=== PATIENT | male | born 1950 | race Caucasian/White ===

== ENCOUNTER → 2017-04-08 11:00 | Outpatient (CLI) | payer MEDICARE, BC ==
[2013-11-10 09:30] VITALS: BMI 37.2
[~2017-04-08 11:00] MED LIST: ALDACTONE25 MG PO; AMBIEN5 MG PO; ASPIRIN EC81 M1 PO; ATIVAN0.5 MG PO; COMBIVENT RESPIM4 GM INH; CRESTOR10 MG PO; IBUPROFEN200 MG PO; IPRATROPIUM BR42 MCG NASAL; LOTREL 5/20 MG1 CAP PO; OMNICEF300 MG PO; TOPROL XL25 MG PO
[2017-06-20 11:28] VITALS: BMI 34.6
== END | disposition home or self-care (01) ==
LOC: D.CT 11:00
DX: I71.4 Abdominal aortic aneurysm, without rupture (principal)

== ENCOUNTER 2017-05-10 14:32 | Inpatient (IN) | payer MEDICARE ==
[~2017-05-10] VITALS: Ht 160 cm; Wt 88.6 kg
--- NOTE | ~2017-05-10 | HEMODYNAMI ---
PATIENT:YONATAN BROWN MEDICAL RECORD: [id number] : 46 [facility] ADMISSION DATE: 05/10/17 Generatedon:05/12/20179:48 Patient name: YONATAN BROWN Patient #: [id number] SSN: : 1950 Date of study: 05/12/2017 Page: Of Hemodynamic Procedure Report Patient Data Patient Demographics Procedure consent was obtained First Name: YONATAN Gender: Male Last Name: KEVIN : 1950 Middle Initial: KAREN Age: 67 year(s) Patient #: [id number] Race: Unknown Additional ID: [id number] Contact details Address: [address] [place] [address] State: [place] City: [place] Zip code: [address] Admission Admission Data Admission Date: 05/10/2017 Admission Time: 17:23 Room #: 2133 Procedure Procedure Types Cath Procedure Diagnostic Procedure LHC [facility] w/Coronaries Miscellaneous Procedures Moderate Sedation up to 30 minutes Procedure Description Procedure Date Procedure Date: 05/12/2017 Procedure Start Time: 9:23 Procedure End Time: 9:47 Procedure Staff Name Function Malick Lemon MD Performing Physician Kameron Patel RT Monitor Nery Solis RT Scrub Dontae Carney RN Nurse Procedure Data Cath Procedure Fluoroscopy Diagnostic fluoroscopy Total fluoroscopy Time: 4.3 time: 4.3 min min Diagnostic fluoroscopy Total fluoroscopy dose: 586 dose: 586 mGy mGy Contrast Material Contrast Material Type Amount (ml) Isovue 300 54 Entry Location Entry Primary Successful Side Size Upsize Upsize Entry Closure Succes sful Closure Location (Fr) 1 (Fr) 2 (Fr) Remarks Device Remarks Femoral Right 5 Fr Exoseal artery Estimated blood loss: 10 ml Diagnostic catheters Device Type Used For End Catheter Placement MULTIPACK JL 4.0 5Fr Procedure catheter DIAGNOSTIC JL 5 5Fr Procedure catheter ([id number]) MULTIPACK 3DRC 5Fr Procedure catheter MULTIPACK Pigtail 5 Fr Procedure catheter Procedure Complications No complications Procedure Medications Medication Administration Route Dosage Oxygen NC 2 l/min Lidocaine 2% added to field 20 Heparin Flush Bag added to field 2 bags (1000units/500ml NS) 0.9% NaCl I.V. 100 ml/hr Versed I.V. 1 mg Hemodynamics Rest Heart Rate: 98 (bpm) Pressure Samples Time Site Value (mmHg) Purpose Heart Use Rate(bpm) 9:31 AO 128/77(97) Snapshot 89 9:37 LV 144/9,35 EDP 90 9:37 LV 139/13,37 Snapshot 89 Snapshots Pre Cath Intra NCS Post Cath Vital Signs Time Heart Resp SPO2 etCO2 NIBP (mmHg) Rhythm Pain Sedation Rate (ipm) (%) (mmHg) Status Level (bpm) 9:14:09 95 30 98 0 135/76(105) Paced 0 (11) 10(A) , No pain 9:19:00 95 30 98 0 123/75(102) Paced 0 (11) 10(A) , No pain 9:23:44 96 34 95 0 134/77(103) Paced 0 (11) 10(A) , No pain 9:28:27 83 30 96 0 122/71(94) Paced 0 (11) 10(A) , No pain 9:33:14 88 28 95 0 129/76(98) Paced 0 (11) 10(A) , No pain 9:37:56 89 31 95 0 121/75(93) Paced 0 (11) 10(A) , No pain 9:42:39 89 26 95 0 115/77(97) Paced 0 (11) 10(A) , No pain 9:47:24 93 27 96 0 127/73(89) Paced 0 (11) 10(A) , No pain Medications Time Medication Route Dose Verified Delivered Reason Notes Effec tiveness by by 9:20:17 Oxygen NC 2 Malick Buffie used for l/min Ion herrera MD 9:20:25 Lidocaine 2% added 20ml Malick Malick for local to vial Ion Lemon MD anesthetic field 9:20:55 Heparin Flush added 2 Malick Malick used for Bag to bags Ion Lemon MD procedure (1000units/500ml field ZUNIGA NS) 9:21:04 0.9% NaCl I.V. 100 Malick Buffie Per ml/hr Ion Carney RN physician MD 9:23:54 Versed I.V. 1 mg Malick Diggs for Ion Carney RN sedation MD Procedure Log Time Note 8:45:58 Kameron Amanda RT(R) sent for patient. Start room use. 8:57:55 Diagnostic Cath status Elective 8:57:59 Time tracking: Call back 9:07:30 Patient received from Med II to CCL 1 Alert and oriented. Tansferred to table in Supine position. 9:07:36 Warm blankets applied, and meseret hugger turned on for patient comfort. 9:07:37 Correct patient and procedure confirmed by team. 9:07:39 Signed procedure consent form obtained from patient. 9:07:39 ECG and BP/O2 sat monitors applied to patient. 9:13:12 Vital chart was started 9:19:41 Baseline sample Acquired. 9:19:56 Rhythm: paced 9:19:57 Full Disclosure recording started 9:20:05 H&P Date Dictated: 05/11/2017 Within 30 days and on chart.. 9:20:06 Pre-procedure instructions explained to patient. 9:20:06 Pre-op teaching completed and patient verbalized understanding. 9:20:12 Family in patients room. 9:20:14 Patient NPO since Midnight. 9:20:15 Is the patient allergic to Iodine/contrast media? No. 9:20:17 Oxygen 2 l/min NC was administered by Dontae Carney RN; used for procedure; 9:20:17 Is patient on blood thinner?Yes 9:20:19 ACC The patient was administered the following blood thiners within the last 24 hours: ACCPlavix 9:20:22 Patient diabetic? No. 9:20:23 Previous problem with sedation/anesthesia? Yes difficulty waking up after sedation. 9:20:25 Lidocaine 2% 20ml vial added to field was administered by Malick Lemon MD; for local anesthetic; 9:20:25 Snore? Yes 9:20:55 Heparin Flush Bag (1000units/500ml NS) 2 bags added to field was administered by Malick Lemon MD; used for procedure; 9:21:04 0.9% NaCl 100 ml/hr I.V. was administered by Dontae Carney RN; Per physician; 9:21:25 Sleep apnea? No 9:21:26 Deviated septum? No 9:21:26 Opens mouth fully? Yes 9:21:27 Sticks out tongue? Yes 9:21:30 Airway obstruction? Yes COPD 9:21:34 Dentures? No ? 9:21:37 Pre procedure: right dorsailis pedis pulse 1+ Palpable, but thready & weak; easily obliterated 9:21:41 Patient pain scale 0/10 ?. 9:21:48 IV patent on arrival in right wrist with 0.9% NaCl at O. 9:22:14 Unable to gain radial due to IV in right wrist. 9:22:19 Lab results completed and on chart. 9:22:22 Right groin area was prepped with chlora-prep and draped in sterile fashion 9::23 Alarms reviewed by R. N. 9:22:24 Sharps counted by scrub and verified by R.N. 9::25 --------ALL STOP TIME OUT------ 9::25 Final Timeout: patient, procedure, and site verified with staff and physician. All members of the team are in agreement. 9:22:27 Right groin site verified by team. 9:22:31 Physical assessment completed. ASA score P 2 - A patient with mild systemic disease as per Malick Lemon MD. 9:22:34 Sedation plan: IV Moderate Sedation Medication:Versed, Fentanyl 9:22:58 Use device set Femoral Dx 9:23:02 Tegaderm 4 x 4 ([id number]) opened to sterile field. 9:23:03 ACIST Manifold (34714) opened to sterile field. 9:23:03 ACIST Hand Control (64725) opened to sterile field. 9:23:05 ACIST Syringe (95528) opened to sterile field. 9:23:06 Bag Decanter (2002S) opened to sterile field. 9:23:06 Medline Cath Pack ([id number]) opened to sterile field. 9:23:07 SHEATH 5FR [place] (YNP540) opened to sterile field. 9:23:07 DIAGNOSTIC WIRE .035 260cm J wire (210758) opened to sterile field. 9:23:09 DIAGNOSTIC Multipack 5Fr catheter set ([id number]) opened to sterile field. 9:23:12 MICROPUNCTURE 4FR Instamour (Y58133) opened to sterile field. 9:23:19 Procedure started. 9:23:22 Local anesthetic to right femoral artery with Lidocaine 2% by Malick Lemon MD.INITIAL ACCESS ONLY 9:23:54 Versed 1 mg I.V. was administered by Dontae Carney RN; for sedation; 9:26:37 Access obtained with 4Fr micropunture. 9:26:40 A 5 Fr sheath was inserted into the Right Femoral artery 9:27:03 Zero performed for pressure channel P1 9:27:40 A MULTIPACK JL 4.0 5Fr catheter was advanced over the wire and used for Procedure. 9:28:48 Catheter removed. unable to cannulate vessel. 9:30:31 A DIAGNOSTIC JL 5 5Fr catheter ([id number]) was advanced over the wire and used for Procedure. 9:31:09 LCA angiography performed. 9:33:14 Catheter exchanged over wire. 9:33:21 A MULTIPACK 3DRC 5Fr catheter was advanced over the wire and used for Procedure. 9:34:56 RCA occluded. 9:34:59 Catheter exchanged over wire. 9:35:04 A MULTIPACK Pigtail 5 Fr catheter was advanced over the wire and used for Procedure. 9:38:49 LV hemodynamics recorded. 9:38:53 LV gram done using ROME 9:38:55 EF : 15 % 9:39:02 Injector settings: Ml/sec: 15, Volume: 20, 9:39:32 Catheter removed. 9:39:44 EXOSEAL 5Fr (EX500) opened to sterile field. 9:40:55 Sheath removed intact; hemostasis achieved with Exoseal to the Right Femoral artery. 9:42:35 Procedure ended.(Physican Out) 9:43:16 Fluoroscopy time 04.30 minutes. 9:43:20 Flurop Dose total: 586 9:43:20 Fluoroscopy dose: 586 mGy 9:43:33 Contrast amount:Isovue 300 54ml. 9:45:59 Sharps counted by scrub and verified by R.N. 9:46:00 Insertion/operative site no bleeding no hematoma. 9:46:03 Post-op/insertion site Right Femoral artery dressed using a 4 x 4 and Tegaderm. 9:46:05 Post Procedure Pulses reassessed and unchanged 9:46:09 Post-procedure physical assessment completed. ASA score P 2 - A patient with mild systemic disease as per Malick Lemon MD. 9:46:11 Post procedure rhythm: unchanged. 9:46:15 Estimated blood loss: 10 ml 9:46:17 Post procedure instruction explained to patient.Patient verbalizes understanding. 9:46:18 Patient needs reinforcement of post procedure teaching. 9:46:33 Procedure type changed to Cath procedure, Diagnostic procedure, LHC, LHC w/Coronaries, Miscellaneous Procedures, Moderate Sedation up to 30 minutes 9:46:35 Procedure and supply charges have been captured, reviewed, submitted and are correct. 9:46:37 Procedure Complication : No complications 9:46:57 Vital chart was stopped 9:46:58 See physician's report for complete and final results. 9:47:00 Report given to Med II. 9:47:02 Patient transfered to Med II with Bed. 9:47:04 Procedure ended. 9:47:04 Full Disclosure recording stopped 9:47:07 End room use (Document Last) Device Usage Item Name Manufacture Quantity Catalog Hospital Part Current Minimal Lot# / Number Charge Number Stock Stock Serial# Code Tegaderm 4 x 3M 1 1626W [id number] 160209 499361 5 4 (1626W) ACIST Acist 1 14990 106090 826164 692401 5 Manifold Medical (06979) Systems Inc ACIST Hand Acist 1 16280 401732 671807 251492 5 Control Medical (23307) Systems Inc ACIST Syringe Acist 1 29755 876627 661265 170104 20 (32655) Medical Systems Inc Bag Decanter Microtek 1 2001S 277211 22393 430829 5 (2001S) Medical Inc. Medline Cath Cardinal 1 [id number] 408105 08480 388566 5 Pack Health ([id number]) SHEATH 5FR Terumo 1 UPA913 162688 758437 783121 40 [place] (YWY485) DIAGNOSTIC St Junior 1 167940 739999 025024 297703 30 WIRE .035 260cm J wire (736074) DIAGNOSTIC Cardinal 1 FK9327 772339 02466 688211 30 Multipack 5Fr Health catheter set ([id number]) MICROPUNCTURE Cook Medical 1 B52784 127078 804051 115217 5 4FJesse Barkley (T58882) MULTIPACK JL Cardinal 1 993799 5 4.0 5Fr Health catheter DIAGNOSTIC JL Cardinal 1 [id number] 590926 303146 849552 5 5 5Fr Health catheter ([id number]) MULTIPACK Cardinal 1 889644 5 3DRC 5Fr Health catheter MULTIPACK Cardinal 1 174327 5 Pigtail 5 Fr Health catheter EXOSEAL 5Fr Cardinal 1 EX500 599304 525561 799699 10 (EX500) Health Signature Audit [place] Stage Time Signature Unsigned Intra-Procedure 05/12/2017 Kameron Patel 9:48:25 AM RT(R) Signatures Monitor : Kameron Patel RT Signature : Date : Time : [address] [address]
--- NOTE | ~2017-05-10 | EC ---
PATIENT:YONATAN BROWN DATE OF SERVICE: 05/10/17 SEX: M MEDICAL RECORD: [id number] DATE OF : 46 LOCATION:D.M2 D.213 AGE OF PATIENT: 67 ADMISSION DATE: 05/10/17 REFERRING PHYSICIAN: INTERPRETING PHYSICIAN: ED KNAPP MD ECHOCARDIOGRAM REPORT ECHO CHARGES 4 ECHO COMPLETE CLINICAL DIAGNOSIS: NON-Q PA ECHOCARDIOGRAPHIC MEASUREMENTS (adult normal given) AC root (d.<3.7cm) 4.3 cm LV Septum d (<1.2 cm> 1.7 cm Valve Excursion 2.1 cm LV Septum (systole) 2.1 cm Left Atria (s.<4.0cm> 4.1 cm LVPW d(<1.2cm) 1.3 cm RV (d.<2.3cm) 3.5 cm LVPW (sytole) 1.6 cm LV diastole(<5.6CM) 7.3 cm MV E-F(>70mm/sec) cm LV systole 6.5 cm LVOT Diameter 2.2 cm MV exc.(>10mm) cm Est.ejection fraction (50-75%) % Pericardial Effusion N DOPPLER: LVIT cm/sec A 86.0 cm/sec E 123 cm/sec LA cm/sec RVSP 23.1 mmHg LVOT 79.0 cm/sec AOP1/2T 415 m/s Asc. Ao 176 cm/sec RVOT 74.0 cm/sec RA cm/sec PA 73.0 cm/sec AV Gradient Peak 12.4 mmHg AV Mean 5.8 mmHg AV Area 1.6 cm MV Gradient Peak 7.4 mmHg MV Mean 3.0 mmHg MV Area cm COMMENTS: Director Of Operations Support: Ashley ANDERSONOE Patient Account Representative: Vicky Knapp TAPE# PACS DATE OF SERVICE: 05/11/2017 PROCEDURE: Transthoracic echocardiogram. FINDINGS: 1. This is a technically difficult study; however, we did notice the patient has severely dilated left ventricle with an akinetic to dyskinetic inferior basal and inferior apical portion. The overall ejection fraction is 15%. 2. The left atrium is dilated moderately. 3. The aortic valve is shown to be normal. ECHOCARDIOGRAM REPORT [id number] YONATAN BROWN 4. The right ventricle is mildly dilated. 5. The right atrium is mildly dilated. 6. The mitral valve has severe mitral regurgitation that is eccentric in its course, has severe proximal flow convergence. 7. The tricuspid valve has moderate tricuspid regurgitation. We did not get a good jet to estimate the right ventricular systolic pressures accurately. 8. The aortic valve does show moderate aortic regurgitation. IMPRESSION: This patient has an ischemic and valvular cardiomyopathy with severe reduction in LV systolic function, EF in the 15% to 20% range, with severe eccentric mitral regurgitation. TRANSINT:[id number] Voice Confirmation ID: [id number] DOCUMENT ID: [id number] 05/17/2017 Edited to correct date of service, dmm. ED KNAPP MD at 1038 CC: [id number] DICTATION DATE: 05/12/17 1018 SLACK COOPER: 05/12/17 1108 DIS IN 05/14/17 [facility] [address] [place] [address]
[~2017-05-10 14:32] MED LIST changes: -ALDACTONE25 MG PO; -ATIVAN0.5 MG PO; -COMBIVENT RESPIM4 GM INH; -IPRATROPIUM BR42 MCG NASAL; -OMNICEF300 MG PO
[2017-05-10 15:42] LABS: BASOPHILS 0.3 % (0-2); EOSINOPHILS 0.9 % (0-7); HEMATOCRIT 43.1 % (42.0-54.0); HEMOGLOBIN 13.8 g/dL (13.5-17.5); IMMATURE GRANULOCYTES 0.4 % (0-5); LYMPHOCYTES 10.8 % (15-50); MCH 27.5 pg (26.0-34.0); MEAN PLATELET VOLUME 10.9 fL (7.4-10.4); MONOCYTES 9.8 % (2-11); NEUTROPHILS 77.8 % (40-80); PLATELET COUNT 152 10x3/uL (130-400); RBC 5.01 10x6/uL (4.20-6.10); RDW 14.8 % (11.5-14.5); WBC 7.4 10x3/uL (4.8-10.8)
[2017-05-10 16:24] LABS: ALBUMIN 3.7 g/dL (3.4-5.0); ALKALINE PHOSPHATASE 94 U/L (46-116); ALT (SGPT) 18 U/L (10-68); BILIRUBIN - TOTAL 0.74 mg/dL (0.2-1.3); CALC OSMOLALITY 278 mosm/kg (275-300); CALCIUM 9.8 mg/dL (8.5-10.1); CARBON DIOXIDE 28.6 mmol/L (21.0-32.0); CHLORIDE - SERUM 104 mmol/L (98-107); CREATININE - SERUM 0.9 mg/dL (0.6-1.3); GLUCOSE 98 mg/dL (74-106); POTASSIUM - SERUM 3.9 mmol/L (3.5-5.1); PROTEIN - SERUM 7.5 g/dL (6.4-8.2); SODIUM 140 mmol/L (136-145); UREA NITROGEN 12 mg/dL (7-18); eGFR NON AFRICAN AMERICAN 89 mL/min (90-120)
[2017-05-10 16:39] LABS: CREATINE KINASE 65 UL (21-232); PRO BNP 3893 pg/mL (0-125)
[2017-05-10 16:49] LABS: TROPONIN-I 0.121 ng/mL (0.000-0.060)
[2017-05-10 22:47] VITALS: BP 113/63; BMI 34.6
[2017-05-10] MEDS ORDERED: COMBIVENT RESPIM4 GM INH (23:08)
[2017-05-10] MEDS ORDERED: ATIVAN0.5 MG PO (23:10)
[2017-05-11 06:47] LABS: BASOPHILS 0.2 % (0-2); EOSINOPHILS 1.9 % (0-7); HEMATOCRIT 40.8 % (42.0-54.0); HEMOGLOBIN 13.3 g/dL (13.5-17.5); IMMATURE GRANULOCYTES 0.5 % (0-5); LYMPHOCYTES 12.3 % (15-50); MCH 28.1 pg (26.0-34.0); MCHC 32.6 g/dL (31.0-37.0); MCV 86.3 fL (80.0-100.0); MONOCYTES 11.3 % (2-11); NEUTROPHILS 73.8 % (40-80); PLATELET COUNT 144 10x3/uL (130-400); RBC 4.73 10x6/uL (4.20-6.10); RDW 14.8 % (11.5-14.5); WBC 6.3 10x3/uL (4.8-10.8)
[2017-05-11 07:14] LABS: ALBUMIN 3.3 g/dL (3.4-5.0); ALKALINE PHOSPHATASE 82 U/L (46-116); ALT (SGPT) 17 U/L (10-68); BILIRUBIN - TOTAL 0.64 mg/dL (0.2-1.3); CALC OSMOLALITY 280 mosm/kg (275-300); CALCIUM 8.9 mg/dL (8.5-10.1); CARBON DIOXIDE 31.4 mmol/L (21.0-32.0); CHLORIDE - SERUM 103 mmol/L (98-107); CREATININE - SERUM 0.9 mg/dL (0.6-1.3); GLUCOSE 94 mg/dL (74-106); POTASSIUM - SERUM 3.4 mmol/L (3.5-5.1); PROTEIN - SERUM 6.8 g/dL (6.4-8.2); SODIUM 141 mmol/L (136-145); UREA NITROGEN 12 mg/dL (7-18); eGFR NON AFRICAN AMERICAN 89 mL/min (90-120)
[2017-05-11 08:00] VITALS: BP 114/69
[2017-05-11 12:00] VITALS: BP 120/69
[2017-05-11 12:14] VITALS: Ht 160 cm; Wt 88.6 kg
[2017-05-12] VITALS: BP 137/63
[2017-05-12 05:39] LABS: BASOPHILS 0.1 % (0-2); EOSINOPHILS 0.7 % (0-7); HEMOGLOBIN 13.1 g/dL (13.5-17.5); IMMATURE GRANULOCYTES 0.4 % (0-5); LYMPHOCYTES 12.7 % (15-50); MCH 27.8 pg (26.0-34.0); MCV 86.9 fL (80.0-100.0); MEAN PLATELET VOLUME 10.9 fL (7.4-10.4); NEUTROPHILS 76.1 % (40-80); PLATELET COUNT 141 10x3/uL (130-400); RBC 4.72 10x6/uL (4.20-6.10); RDW 14.6 % (11.5-14.5); WBC 6.7 10x3/uL (4.8-10.8)
[2017-05-12 06:05] LABS: ALBUMIN 3.3 g/dL (3.4-5.0); ANION GAP 7.2 mmol/L (8-16); BILIRUBIN - TOTAL 0.67 mg/dL (0.2-1.3); CALCIUM 8.7 mg/dL (8.5-10.1); CREATININE - SERUM 1.1 mg/dL (0.6-1.3); MAGNESIUM - SERUM 1.9 mg/dL (1.8-2.4); PHOSPHOROUS 3.1 mg/dL (2.5-4.9); POTASSIUM - SERUM 3.2 mmol/L (3.5-5.1); PROTEIN - SERUM 6.8 g/dL (6.4-8.2)
[2017-05-12 06:20] VITALS: BP 119/59
[2017-05-12 08:12] VITALS: BP 125/73
[2017-05-12 11:30] VITALS: BP 118/77
[2017-05-12 15:40] VITALS: BP 122/72
[2017-05-12 21:52] VITALS: BP 104/67
[2017-05-13 00:52] VITALS: BP 99/65
[2017-05-13 05:27] LABS: BASOPHILS 0.2 % (0-2); EOSINOPHILS 2.9 % (0-7); HEMATOCRIT 41.8 % (42.0-54.0); HEMOGLOBIN 13.2 g/dL (13.5-17.5); IMMATURE GRANULOCYTES 0.5 % (0-5); LYMPHOCYTES 11.3 % (15-50); MCH 27.8 pg (26.0-34.0); MCHC 31.6 g/dL (31.0-37.0); MCV 88.2 fL (80.0-100.0); MEAN PLATELET VOLUME 10.9 fL (7.4-10.4); MONOCYTES 11.1 % (2-11); PLATELET COUNT 142 10x3/uL (130-400); RBC 4.74 10x6/uL (4.20-6.10); RDW 14.6 % (11.5-14.5); WBC 6.3 10x3/uL (4.8-10.8)
[2017-05-13 05:42] LABS: ANION GAP 7.1 mmol/L (8-16); CALCIUM 8.9 mg/dL (8.5-10.1); CARBON DIOXIDE 36.5 mmol/L (21.0-32.0); CREATININE - SERUM 1.1 mg/dL (0.6-1.3); POTASSIUM - SERUM 3.6 mmol/L (3.5-5.1)
[2017-05-13 07:25] VITALS: BP 103/65
[2017-05-13 08:00] VITALS: BP 111/67
[2017-05-13 12:03] VITALS: BP 123/72
[2017-05-13 19:00] VITALS: BP 107/54
[2017-05-14] VITALS: BP 119/70
[2017-05-14 04:00] VITALS: BP 116/58
[2017-05-14 06:05] LABS: BASOPHILS 0.2 % (0-2); EOSINOPHILS 5.7 % (0-7); HEMATOCRIT 40.2 % (42.0-54.0); HEMOGLOBIN 12.9 g/dL (13.5-17.5); IMMATURE GRANULOCYTES 0.7 % (0-5); LYMPHOCYTES 13.6 % (15-50); MCH 28.1 pg (26.0-34.0); MCHC 32.1 g/dL (31.0-37.0); MCV 87.6 fL (80.0-100.0); MEAN PLATELET VOLUME 11.4 fL (7.4-10.4); NEUTROPHILS 65.8 % (40-80); PLATELET COUNT 124 10x3/uL (130-400); RBC 4.59 10x6/uL (4.20-6.10); RDW 14.5 % (11.5-14.5); WBC 5.8 10x3/uL (4.8-10.8)
[2017-05-14 06:56] LABS: CALC OSMOLALITY 286 mosm/kg (275-300); CALCIUM 8.9 mg/dL (8.5-10.1); CHLORIDE - SERUM 100 mmol/L (98-107); CREATININE - SERUM 0.9 mg/dL (0.6-1.3); GLUCOSE 97 mg/dL (74-106); POTASSIUM - SERUM 3.6 mmol/L (3.5-5.1); SODIUM 143 mmol/L (136-145); UREA NITROGEN 19 mg/dL (7-18); eGFR NON AFRICAN AMERICAN 89 mL/min (90-120)
[2017-05-14 08:05] VITALS: BP 102/60
[2017-05-14] MEDS ORDERED: OMNICEF300 MG PO (10:16)
[2017-05-14 12:58] VITALS: BP 98/53
== END 2017-05-14 14:13 | disposition home or self-care (01) | DRG 280 ==
LOC: D.ER 14:32 → D.SDCHOLD 17:23 → D.M2 17:23
PROVIDERS: Emergency Medicine; Family Medicine; Internal Medicine Cardiovascular Disease
PROC: B2151ZZ Fluoroscopy of Left Heart using Low Osmolar Contrast (ICD-10-PCS; 2017-05-12)
PROC: 4A023N7 Measurement of Cardiac Sampling and Pressure, Left Heart, Percutaneous Approach (ICD-10-PCS; 2017-05-12)
PROC: B2111ZZ Fluoroscopy of Multiple Coronary Arteries using Low Osmolar Contrast (ICD-10-PCS; principal; 2017-05-12 08:45)
DX: I21.4 Non-ST elevation (NSTEMI) myocardial infarction (principal); J18.9 Pneumonia, unspecified organism; I11.0 Hypertensive heart disease with heart failure; I50.9 Heart failure, unspecified; I25.10 Atherosclerotic heart disease of native coronary artery without angina pectoris; I08.0 Rheumatic disorders of both mitral and aortic valves; I25.5 Ischemic cardiomyopathy; E78.5 Hyperlipidemia, unspecified; F41.9 Anxiety disorder, unspecified; Z95.0 Presence of cardiac pacemaker; Z95.5 Presence of coronary angioplasty implant and graft

== ENCOUNTER 2017-06-20 10:49 | Outpatient (CLI) | payer MEDICARE ==
[~2017-06-20] VITALS: Ht 160 cm; Wt 88.6 kg
--- NOTE | ~2017-06-20 | TEE ---
PATIENT:YONATAN BROWN MEDICAL RECORD: [id number] LOCATION:D[facility] AGE OF PATIENT: 67 ADMISSION DATE: 06/20/17 SEX: M REFERRING PHYSICIAN: INTERPRETING PHYSICIAN: DUTCH MCCONNELL MD TRANSESOPHAGEAL ECHOCARDIOGRAM DALIA CHARGE Y INDICATIONS: ASSESS MITRAL REGURG PREMEDICATIONS: PATIENT'S RESPONSE PROCEDURE DOPPLER MEASUREMENTS: LVIT LA PA RA LVOT RVOT Asc. Ao AV Gradient Peak AV Mean AV Area MV Gradient Peak MV Mean MV Area INTERPRETATION: Doppler: 2-D: MARKEDLY ENGLARGED LV AND LA, EF 20% COLOR FLOW DOPPLER MODDERATE MR, MILD AI NORMAL SALINE STUDY: MISCELLANOUS: DIAGNOSIS: PLAN: Radiotelegrapher:3 Dr. Harrison Stage Settings Painter: Mery PAIZ COMMENTS: LACIE PATIENT DATE OF SERVICE: 06/20/2017 TRANSESOPHAGEAL NOTE After general sedation via TIVA anesthesia, transesophageal Omniplane probe was placed into esophagus and proximal stomach without difficulty. No LVH. LV internal dimensions are obviously dilated. LV is globally hypokinetic with reduced EF of 25%. Aortic valve is tricuspid with good valve TRANSESOPHAGEAL ECHOCARDIOGRAM REPORT [id number] YONATAN BROWNion. There is mild AI by color-flow imaging. Left atrium is obviously dilated. Mitral valve shows no prolapse, but moderate MR with an eccentric directed jet. This appears to be more secondary to dilatation of the mitral valve annular apparatus. Right-sided chambers appear dilated. Phyp-kw-eduhzclv TR is noted as well. TRANSINT:[id number] Voice Confirmation ID: [id number] DOCUMENT ID: [id number] at 0823 CC: [id number] DICTATION DATE: 06/20/17 1406 SHREDDER/GRANULATOR OPERATOR: 06/20/17 1709 DEP CLI 06/20/17 [place] [address]
--- NOTE | ~2017-06-20 | HEMODYNAMI ---
PATIENT:YONATAN BROWN MEDICAL RECORD: [id number] : 46 LOCATION:[facility] ADMISSION DATE: 06/20/17 Generatedon:06/20/201713:47 Patient name: YONATAN BROWN Patient #: [id number] SSN: : 1950 Date of study: 06/20/2017 Page: Of Hemodynamic Procedure Report Patient Data Patient Demographics Procedure consent was obtained First Name: YONATAN Gender: Male Last Name: KEVIN : 1950 Middle Initial: KAREN Age: 67 year(s) Patient #: [id number] Race: Unknown Additional ID: [id number] Contact details [address]: [address] [place] [address] State: [place] City: [place] Zip code: [address] Past Medical History Allergies Allergen Reaction Date Comments Reported Other allergy 06/20/2017 NKDA Admission Admission Data Admission Date: 06/20/2017 Admission Time: 10:49 Height (in.): 5.2 BSA: 0.31 (m2) Height (cm.): 13.21 BMI: 4992.21 (kg/m2) Weight (lbs.): 192 Weight (kg.): 87.09 Procedure Procedure Types Cath Procedure Diagnostic Procedure DALIA Procedure Description Procedure Date Procedure Date: 06/20/2017 Procedure Start Time: 13:18 Procedure End Time: 13:44 Procedure Staff Name Function Nery Solis RT Industrial Engineering Professor Hamzah Walton CRNA Additional personnel Trinity Ng RT Monitor Arvind Harrison MD Performing Physician Dontae Carney RN Nurse Isreal Carr Theatre Arts Professor Procedure Data Procedure Complications No complications Procedure Medications Medication Administration Route Dosage Oxygen NC 2 l/min Refer to Anesthesia Notes for Sedation Medications Hurricaine Cades P.O. Sprays Hemodynamics Rest BSA: 0.31 (m2) O2 Consumption: Estimated: 29.13 (ml/min) O2 Consumption indexed: Estimated:93.97 (ml/min/m) Heart Rate: 12 (bpm) Snapshots Pre Cath Intra NCS Post Cath Vital Signs Time Heart Resp SPO2 etCO2 NIBP (mmHg) Rhythm Pain Sedation Rate (ipm) (%) (mmHg) Status Level (bpm) 13:14:13 76 15 96 19.6 87/72(81) NSR 0 (11) 10(A) , No pain 13:18:19 80 19 99 27.2 102/61(74) NSR 0 (11) 10(A) , No pain 13:22:28 105 13 82 0 107/65(82) NSR 0 (11) 9(A) , No pain 13:26:32 103 16 69 1.5 121/88(98) NSR 0 (11) 9(A) , No pain 13:30:46 69 13 96 0 119/58(92) NSR 0 (11) 9(A) , No pain 13:42:53 66 29 97 0 114/91(105) NSR 0 (11) 10(A) , No pain Medications Time Medication Route Dose Verified Delivered Reason Notes Effective ness by by 13:06:43 Oxygen NC 2 Arvind Diggs Per l/min [facility] Angelika NEWTON physician 13:07:05 Refer to Arvind Samuels Anesthesia [facility] Notes for MD ZUNIGA Sedation Medications 13:07:27 Hurricaine P.O. Sprays Arvind Samuels used for Cades [facility] procedure MD ZUNIGA Procedure Log Time Note 12:54:58 Nery Solis RT(R) sent for patient. Start room use. 12:55:00 Time tracking: Regular hours 12:55:03 Plan of Care:Hemodynamics will remain stable., Cardiac rhythm will remain stable., Comfort level will be maintained., Respiratory function will remain adequate., Patient/ family verbilizes understanding of procedure., Procedure tolerated without complication., Recovers from procedure without complications.. 12:55:07 Signed procedure consent form obtained from patient. 12:56:29 Patient Height : 5.2 inches 12:56:34 Patient Weight : 192 lbs 12:57:18 H&P Date Dictated: 06/06/2017 Within 30 days and on chart., H&P Addendum completed by physician on day of procedure. (MUST COMPLETE FOR ALL OUTPATIENTS). 13:00:45 Patient arrived from Pre/Post Procedure Room to CCL 2. Patient remains on bed/stretcher for procedure. 13:00:49 Warm blankets applied, and meseret hugger turned on for patient comfort. 13:00:50 Correct patient and procedure confirmed by team. 13:00:51 ECG and BP/O2 sat monitors applied to patient. 13:01:01 Hamzah Walton CRNA present and monitoring patient for TIVA. 13:01:53 Previous problem with sedation/anesthesia? No ? 13:01:56 Snore? Yes 13:01:58 Sleep apnea? No 13:01:59 Deviated septum? No 13:01:59 Opens mouth fully? Yes 13:02:00 Sticks out tongue? Yes 13:02:15 Airway obstruction? No ? 13:02:18 Patient diabetic? No. 13:02:37 Dentures? No ? 13:02:55 Pre-procedure instructions explained to patient. 13:02:56 Pre-op teaching completed and patient verbalized understanding. 13:03:00 Family in patients room. 13:03:02 Patient NPO since Midnight. 13:03:04 Is the patient allergic to Iodine/contrast media? No. 13:05:08 Patient allergic to Other allergyNKDA 13:05:15 Is patient on blood thinner?No 13:05:33 IV patent on arrival in right forearm with 0.9% NaCl at O. 13:05:43 Alarms reviewed by R. N. 13:05:43 Sharps counted by scrub and verified by R.N. 13:05:55 Isreal Carr Respite Coordinator present for DALIA. 13:06:43 Oxygen 2 l/min NC was administered by Dontae Carney RN; Per physician; 13:07:05 Refer to Anesthesia Notes for Sedation Medications was administered by Arvind Harrison MD; ; 13:07:27 Hurricaine Cades Sprays P.O. was administered by Arvind Harrison MD; used for procedure; 13:08:53 Physician paged 13:11:49 --------ALL STOP TIME OUT------ 13:11:49 Final Timeout: patient, procedure, and site verified with staff and physician. All members of the team are in agreement. 13:11:55 Sedation plan: TIVA Medication:Propofol 13:12:06 Hamzah Walton CRNA present and monitoring patient for TIVA. 13:12:46 Vital chart was started 13:14:50 Full Disclosure recording started 13:14:53 Baseline sample Acquired. 13:14:58 Baseline sample Acquired. 13:15:35 Rhythm: paced 13:18:14 Procedure started. 13:19:20 DALIA started. 13:31:48 DALIA ENDED, PATIENT O2 LEVELS DROPPED. 13:33:21 Pt. was intubated by Hamzah Walton CRNA with 8Fr endotrachial tube. Breath sounds equal bilaterally. Tube was taped into position at ?cm 13:43:23 Post-procedure physical assessment completed. ASA score P 2 - A patient with mild systemic disease as per Arvind Harrison MD. 13:43:26 Post procedure instruction explained to patient.Patient verbalizes understanding. 13:43:28 Patient needs reinforcement of post procedure teaching. 13:43:34 Procedure and supply charges have been captured, reviewed, submitted and are correct. 13:43:46 Procedure Complication : No complications 13:43:49 Vital chart was stopped 13:43:50 See physician's report for complete and final results. 13:43:52 Report given to Pre/Post Procedure Room. 13:44:00 HAMZAH WALTON PULLED TUBE. PATIENT AWAKE AND ALERT 13:44:07 PATIENT WILL GO TO O.R. RECOVERY ROOM 13:44:23 TAKING TO OR RECOVERY PER POLICY FOR INTUBATION. SEE ANESTHESIA NOTES FOR PROCEDURE. 13:44:42 PATIENT WILL GO BACK TO PRE/OP RECOVERY 13:44:46 Procedure ended. 13:44:46 Full Disclosure recording stopped 13:44:52 End room use (Document Last) Signature Audit [place] Stage Time Signature Unsigned Intra-Procedure 06/20/2017 Trinity Ng 1:47:37 PM RT(R) Signatures Monitor : Trinity Ng Signature : RT Date : Time : [address] [address]
[~2017-06-20 10:49] MED LIST changes: +ATIVAN0.5 MG PO; +COMBIVENT RESPIM4 GM INH; +OMNICEF300 MG PO
[2017-06-20] MEDS ORDERED: IPRATROPIUM BR42 MCG NASAL (11:17)
[2017-06-20] MEDS ORDERED: ALDACTONE25 MG PO (11:19)
[2017-06-20 11:28] VITALS: BP 104/65; Ht 160 cm; Wt 88.6 kg
[2017-06-20 11:44] LABS: BASOPHILS 0.2 % (0-2); EOSINOPHILS 1.9 % (0-7); HEMATOCRIT 44.1 % (42.0-54.0); HEMOGLOBIN 14.6 g/dL (13.5-17.5); IMMATURE GRANULOCYTES 0.5 % (0-5); MCH 28.3 pg (26.0-34.0); MCHC 33.1 g/dL (31.0-37.0); MCV 85.5 fL (80.0-100.0); MEAN PLATELET VOLUME 10.9 fL (7.4-10.4); MONOCYTES 8.6 % (2-11); NEUTROPHILS 74.8 % (40-80); PLATELET COUNT 138 10x3/uL (130-400); RBC 5.16 10x6/uL (4.20-6.10); RDW 15.3 % (11.5-14.5); WBC 6.5 10x3/uL (4.8-10.8)
[2017-06-20 11:56] LABS: CALC OSMOLALITY 279 mosm/kg (275-300); CALCIUM 9.1 mg/dL (8.5-10.1); CARBON DIOXIDE 23.5 mmol/L (21.0-32.0); CHLORIDE - SERUM 106 mmol/L (98-107); CREATININE - SERUM 0.8 mg/dL (0.6-1.3); GLUCOSE 94 mg/dL (74-106); SODIUM 139 mmol/L (136-145); UREA NITROGEN 18 mg/dL (7-18); eGFR NON AFRICAN AMERICAN > 90 mL/min (90-120)
[2017-06-20 12:16] LABS: INR 1.08 (0.85-1.17); PROTIME 13.6 SECONDS (11.6-15.0)
== END 2017-06-20 16:00 | disposition home or self-care (01) ==
LOC: D.CATH 10:49
PROVIDERS: Internal Medicine Cardiovascular Disease
DX: I34.0 Nonrheumatic mitral (valve) insufficiency (principal); I35.1 Nonrheumatic aortic (valve) insufficiency; I07.1 Rheumatic tricuspid insufficiency; Z01.812 Encounter for preprocedural laboratory examination